=== PATIENT | male | born 1995 | race Caucasian/White ===

== ENCOUNTER 2017-07-24 15:52 | Emergency (ER) | payer OTHER ==
[~2017-07-24] VITALS: Ht 175.3 cm; Wt 72.6 kg
[2017-07-24 15:52] VITALS: BP 135/84
[~2017-07-24 15:52] MED LIST: ESCI10TA PO
== END 2017-07-24 17:39 | disposition home or self-care (01) ==
LOC: ER 15:54
DX: S09.90XA Unspecified injury of head, initial encounter (principal); J45.909 Unspecified asthma, uncomplicated; Z88.0 Allergy status to penicillin; W22.8XXA Striking against or struck by other objects, initial encounter; Y93.89 Activity, other specified; Y92.89 Other specified places as the place of occurrence of the external cause; Y99.0 Civilian activity done for income or pay
CPT/HCPCS: 99282; A4606; Z7610

== ENCOUNTER 2018-02-16 06:38 | Emergency (ER) | payer OTHER ==
[~2018-02-16] VITALS: Ht 175.3 cm; Wt 68.0 kg
--- NOTE | 2018-02-16 06:38 | NUR ---
BB SELF; "TOOK TRADOR MIGUEL MARITNEZ 5HTP X 1MONTH I THINK I HAVE A TOXIC LEVEL OF SEROTONIN IN MY BODY AND FEEL LIKE I AM ON METH". NO SOB OR PAIN AT THIS TIME. SEEMS ANXIOUS. VSS NAD. WILL CONTINUE TO MONITOR FOR ANY CHANGES DURING THE SHIFT.
--- NOTE | 2018-02-16 06:51 | NUR ---
ER AT BEDSIDE
--- NOTE | 2018-02-16 07:12 | NUR ---
RECEIVED REPORT FROM LISA ESPINAL FOR TASHA. ASSUMED CARE AT THIS POINT IN TIME.
[2018-02-16 07:15] VITALS: BP 122/86
--- NOTE | 2018-02-16 07:15 | NUR ---
Patient discharged to home in stable condition. Written and verbal after care instructions given. Patient verbalizes understanding of instruction.
== END 2018-02-16 07:17 | disposition home or self-care (01) ==
LOC: ER 06:38
DX: T65.891A Toxic effect of other specified substances, accidental (unintentional), initial encounter (principal); J45.909 Unspecified asthma, uncomplicated; Z88.0 Allergy status to penicillin; Y92.89 Other specified places as the place of occurrence of the external cause
CPT/HCPCS: A4606; Z7610